=== PATIENT | male | born 1955 | race Caucasian/White ===

== ENCOUNTER 2017-03-27 11:22 | Emergency (ER) | payer MEDICARE ==
[~2017-03-27] VITALS: Ht 185.4 cm; Wt 84.0 kg
[2017-03-27 11:42] VITALS: BP 137/91; PULSE 64; RESP 16; TEMP 97.8; O2SAT 98
[2017-03-27] MEDS ORDERED: AMOX500T PO (12:43)
--- NOTE | 2017-03-27 12:43 | PD ---
HPI Chief Complaint: ENT Complaint Time Seen by Provider: 12:32 Travel History International Travel<30 days: No Contact w/Intl Traveler<30days: No Traveled to known affect area: No History of Present Illness HPI 61 -year-old male here with sore throat 1 week. He reports subjective fever and chills. Denies nasal congestion, cough, body aches. He reports he had similar symptoms in the past with tonsillitis. He denies difficulty eating or drinking. He does have pain with swallowing. Symptom severity is moderate. No alleviating factors. PFSH Past Medical History Diminished Hearing: No Tetanus Vaccination: < 5 Years Influenza Vaccination: No ?: Not Social History Alcohol Use: No Tobacco Use: No Substance Use: No Allergies-Medications (Allergen,Severity, Reaction): Coded Allergies: No Known Allergies (Unverified , 03/27/17) Reported Meds & Prescriptions Reported Meds & Active Scripts Active Amoxicillin 500 Mg Tab 500 Mg PO TID 10 Days Review of Systems Except as stated in HPI: all other systems reviewed are Neg General / Constitutional: Positive: Fever Eyes: No: Visual changes HENT: Positive: Sore Throat Cardiovascular: No: Chest Pain or Discomfort Respiratory: No: Shortness of Breath Gastrointestinal: No: Abdominal Pain Genitourinary: No: Dysuria Physical Exam Narrative GENERAL: Alert and well-appearing male. Nontoxic appearing. SKIN: Warm and dry. HEAD: Atraumatic. Normocephalic. EYES: Pupils equal and round. No scleral icterus. No injection or drainage. ENT: Pharyngeal erythema with tonsillar hypertrophy. Uvula is midline. Airway is patent. No nasal bleeding or discharge. Mucous membranes pink and moist. NECK: Trachea midline. No JVD. CARDIOVASCULAR: Regular rate and rhythm. RESPIRATORY: No accessory muscle use. Clear to auscultation. Breath sounds equal bilaterally. GASTROINTESTINAL: Abdomen soft, non-tender, nondistended. . Data Data Last Documented VS Vital Signs Date Time Temp Pulse Resp B/P (MAP) Pulse Ox O2 Delivery O2 Flow Rate FiO2 03/27/17 11:42 97.8 64 16 137/91 (106) 98 Orders Orders Prednisone (Deltasone) (03/27/17 12:45) MDM Medical Decision Making Medical Screen Exam Complete: Yes Emergency Medical Condition: Yes Differential Diagnosis Strep pharyngitis, viral pharyngitis, URI Narrative Course 61-year-old male here with sore throat 1 week. He reports pain has intensified in the last 24 hours. He is well-appearing. His airway is patent. He does have moderate tonsillar hypertrophy and erythema. He'll be treated with amoxicillin and steroids. Follow-up with primary doctor. Diagnosis Primary Impression: Pharyngitis Qualified Codes: J02.9 - Acute pharyngitis, unspecified Referrals: Primary Care Physician Additional Instructions: Medication as prescribed. Stay well hydrated. Tylenol and ibuprofen as needed for pain. Follow-up with her doctor Scripts Amoxicillin (Amoxicillin) 500 Mg Tab 500 MG PO TID for Infection for 10 Days, TAB 0 Refills Prov: Stacy Sheppard 03/27/17 Disposition: 01 DISCHARGE HOME Condition: Stable Stacy Sheppard Mar 27, 2017 12:43
[2017-03-27] MEDS ORDERED: predniSONE 50 MG TAB PO ONE (12:45)
[2017-03-27] MEDS ORDERED: OSEL75 PO (19:35)
[2017-03-27] MEDS ORDERED: ZOFR4TAB PO (19:35)
== END 2017-03-27 12:57 | disposition home or self-care (01) ==
LOC: PHEFT 11:22
DX: J02.9 Acute pharyngitis, unspecified (principal)
CPT/HCPCS: 99283

== ENCOUNTER 2017-03-27 18:41 | Emergency (ER) | payer MEDICARE ==
[~2017-03-27] VITALS: Ht 185.4 cm; Wt 84.3 kg
[~2017-03-27 18:41] MED LIST: AMOX500T PO
[2017-03-27 18:43] VITALS: BP 138/82; PULSE 106; RESP 20; TEMP 101.5; O2SAT 95
[2017-03-27] MEDS ORDERED: ONDANSETRON ODT 4 MG TAB PO ONE (19:30)
[2017-03-27] MEDS ORDERED: ACETAMINOPHEN 500 MG CPLT PO ONE (19:30)
[2017-03-27] MEDS ORDERED: ZOFR4TAB PO (19:35)
[2017-03-27] MEDS ORDERED: OSEL75 PO (19:35)
--- NOTE | 2017-03-27 19:36 | PD ---
HPI Chief Complaint: Fever Time Seen by Provider: 18:52 Travel History International Travel<30 days: No Contact w/Intl Traveler<30days: No Traveled to known affect area: No History of Present Illness HPI This is a 61-year-old male who presents with body aches and fever. He was seen earlier today for one week history of sore throat. He denies taking any Tylenol or ibuprofen to treat the fever. Symptoms severity is moderate. No aggravating or alleviating factors. PFSH Past Medical History Medical History: Denies Significant Hx Diminished Hearing: No Social History Alcohol Use: No Tobacco Use: No Substance Use: No Allergies-Medications (Allergen,Severity, Reaction): Coded Allergies: No Known Allergies (Unverified , 03/27/17) Reported Meds & Prescriptions Reported Meds & Active Scripts Active Amoxicillin 500 Mg Tab 500 Mg PO TID 10 Days Review of Systems Except as stated in HPI: all other systems reviewed are Neg General / Constitutional: Positive: Fever HENT: Positive: Sore Throat Cardiovascular: No: Chest Pain or Discomfort Respiratory: No: Shortness of Breath Gastrointestinal: Positive: Nausea Genitourinary: No: Dysuria Physical Exam Narrative GENERAL: Alert male. Nontoxic appearing. SKIN: Warm and dry. No rash. HEAD: Normocephalic. EYES: No scleral icterus. No injection or drainage. Mouth: Pharyngeal erythema with tonsillar hypertrophy. No exudate. Uvula is midline. NECK: Supple, trachea midline. No meningismus CARDIOVASCULAR: Regular rate and rhythm without murmurs, gallops, or rubs. RESPIRATORY: Breath sounds equal bilaterally. No accessory muscle use. GASTROINTESTINAL: Abdomen soft, non-tender, nondistended. MUSCULOSKELETAL: No cyanosis, or edema. BACK: Nontender without obvious deformity. No CVA tenderness. Data Data Last Documented VS Vital Signs Date Time Temp Pulse Resp B/P (MAP) Pulse Ox O2 Delivery O2 Flow Rate FiO2 03/27/17 18:43 101.5 106 20 138/82 (100) 95 Orders Orders Influenzae A/B Antigen (03/27/17 18:52) Group A Rapid Strep Screen (03/27/17 18:52) Strep Culture (Group A) (03/27/17 19:03) Ondansetron Odt (Zofran Odt) (03/27/17 19:30) Acetaminophen (Tylenol) (03/27/17 19:30) [facility] Medical Decision Making Medical Screen Exam Complete: Yes Emergency Medical Condition: Yes Differential Diagnosis Influenza, URI, pharyngitis Narrative Course 61-year-old male here with fever and body aches times one day. He was seen earlier today for sore throat for the last 7 days. He is nontoxic appearing. He is febrile and mildly tachycardic on arrival. He was given Tylenol and Zofran. Vital signs improved. He tested positive for influenza A. He will be prescribed Tamiflu Diagnosis Primary Impression: Influenza A Referrals: Primary Care Physician Additional Instructions: Take Tylenol or ibuprofen every 6 hours for fever. Stay well hydrated by drinking plenty of fluids. Rest. Take Tamiflu as prescribed. Return if he developed new or worsening symptoms Scripts Oseltamivir (Tamiflu) 75 Mg Cap 75 MG PO BID for Mgmt Viral Infection for 5 Days, #10 CAP 0 Refills Prov: Stacy Sheppard 03/27/17 Ondansetron (Zofran) 4 Mg Tab 4 MG PO Q6HR Y for NAUSEA OR VOMITING, #12 TAB 0 Refills Prov: Stacy Sheppard 03/27/17 Disposition: 01 DISCHARGE HOME Condition: Stable Stacy Sheppard Mar 27, 2017 19:36
== END 2017-03-27 19:49 | disposition home or self-care (01) ==
LOC: PHEFT 18:41
DX: J09.X2 Influenza due to identified novel influenza A virus with other respiratory manifestations (principal); J02.9 Acute pharyngitis, unspecified; R52 Pain, unspecified; R11.0 Nausea
CPT/HCPCS: 87081; 87804; 87880; 99283